=== PATIENT | male | born 1970 | race Caucasian/White ===

== ENCOUNTER → 2017-12-05 10:56 | Outpatient (CLI) | payer OTHER, SELFPAY ==
--- NOTE | 2017-12-05 10:59 | MR_ITS ---
MR lumbar spine wo con, MR 3-d myelogram/MRCP HISTORY: ITS.REASON: ACUTE RIGHT SIDED BACK PAIN WITH SCIATICA ORDERING PHYSICIAN: Monroe Huizar MD PATIENT AGE: 46 years Comparison: 11-26-17 TECHNIQUE: Standard multiplanar multiecho sequences are performed without contrast. 3-D MIP and myelographic images are also rendered and reviewed FINDINGS: There is normal alignment. The spinal cord ends at the T12-L1 level. L2-L3: Mild concentric bulging disc. L3-L4: Bulging disc with a small broad-based left paracentral and foraminal disc protrusion. This was partially calcified on the CT scan. This is abutting the left L4 nerve root and causing left lateral recess and foraminal narrowing. Type II endplate changes are present as level. There is facet ligamentum flavum hypertrophy with bilateral lateral recess and foraminal narrowing left greater than right L4-L5: Mild facet and ligamentum hypertrophy. L5-S1: Mild concentric bulging disc with mild facet and ligamentum flavum hypertrophy with mild bilateral foraminal narrowing. IMPRESSION: 1. Bulging disc at L3-L4 with a small broad-based left paracentral and foraminal disc protrusion. This was partially calcified on the CT scan. This is abutting the left L4 nerve root and causing left lateral recess and foraminal narrowing. Type II endplate changes are present as level. There is facet ligamentum flavum hypertrophy with bilateral lateral recess and foraminal narrowing left greater than right 2. Mild bulging disc at L2-L3 with mild facet and ligamentum flavum hypertrophy at L4-L5 and mild bulging disc with facet and ligamentum hypertrophy with mild bilateral foraminal narrowing at L5-S1
== END ==
PROVIDERS: Family Provider Internal Medicine Adolescent Medicine; PCP Internal Medicine Adolescent Medicine; Visit Provider Internal Medicine Adolescent Medicine
DX: M54.41 Lumbago with sciatica, right side (principal)
CPT/HCPCS: 72148; 76376

== ENCOUNTER → 2019-05-16 15:50 | Outpatient (CLI) | payer OTHER, SELFPAY ==
[2019-05-16 17:27] LABS: Erythrocyte Sedimentation Rate 10 mm/hr (0-15)
[2019-05-20 06:36] LABS: Rapid Plasma Reagin Ab Titer Non Reactive (NonRea<1:1)
[2019-05-20 13:15] LABS: Anti-Centromere B Antibodies <0.2 AI (0.0-0.9); Anti-Jo-1 <0.2 AI (0.0-0.9); Anti-Smith Antibody <0.2 AI (0.0-0.9); Antichromatin Antibodies <0.2 AI (0.0-0.9); Antiscleroderma-70 Antibodies <0.2 AI (0.0-0.9); RNP Antibodies <0.2 AI (0.0-0.9); Sjogren's Anti-SS-A <0.2 AI (0.0-0.9); Sjogren's Anti-SS-B <0.2 AI (0.0-0.9)
[2019-05-21 06:14] LABS: Anti-DNA (DS) Ab Qn <1 IU/mL (0-9)
== END ==
PROVIDERS: Visit Provider Internal Medicine Adolescent Medicine
DX: H20.9 Unspecified iridocyclitis (principal)
CPT/HCPCS: 36415; 85651; 86225; 86235; 86592

== ENCOUNTER → 2019-05-20 11:11 | Outpatient (CLI) | payer OTHER, SELFPAY ==
[2019-05-20 13:54] LABS: C-Reactive Protein 0.3 mg/dL (0.0-0.9)
[2019-05-21 11:28] LABS: Cytomegalovirus (CMV) Ab, IgG >10.00 U/mL (0.00-0.59); Cytomegalovirus (CMV) Ab, IgM <30.0 AU/mL (0.0-29.9); HSV 2 IgG, Type Spec <0.91 index (0.00-0.90)
[2019-05-22 07:34] LABS: Treponema pallidum Ab (FTA-ABS Non Reactive (Non Reactive); Varicella Zoster IgG 1663 index (Immune >165); Varicella-Zoster Ab, IgM <0.91 index (0.00-0.90)
[2019-05-24 10:27] LABS: QuantiFERON-TB Gold Plus Negative (Negative)
[2019-05-24 12:23] LABS: HLA-B27 Negative (.)
== END ==
PROVIDERS: Visit Provider Ophthalmology
DX: H20.022 Recurrent acute iridocyclitis, left eye (principal)
CPT/HCPCS: 36415; 86140; 86480; 86644; 86645; 86695; 86696; 86780; 86787; 86790; 86812

== ENCOUNTER → 2020-05-08 09:44 | Outpatient (CLI) | payer OTHER, SELFPAY ==
[2020-05-08 10:31] LABS: Basophils # 0.1 K/mm3 (0-0.2); Basophils % 0.6 % (0.1-2.0); Eosinophils # 0.1 K/mm3 (0.0-0.4); Eosinophils % 1.3 % (0.1-12.0); Hematocrit 49.3 % (42.0-52.0); Hemoglobin 16.6 g/dL (14.1-18.0); Lymphocytes # 2.2 K/mm3 (0.7-4.5); Lymphocytes % 30.4 % (10-50); Mean Corpuscular HGB Conc 33.6 g/dL (31.8-35.4); Mean Corpuscular Hemoglobin 30.4 pg (27.0-31.2); Mean Corpuscular Volume 90.5 fl (80-94); Mean Platelet Volume 7.4 fl (7.4-10.4); Monocytes # 0.3 K/mm3 (0.1-1.0); Monocytes % 3.7 % (1.7-9.3); Neutrophils # 4.6 K/mm3 (1.8-7.8); Neutrophils % 63.9 % (37.0-80.0); Platelet Count 231 K/mm3 (142-424); Red Blood Count 5.45 M/mm3 (4.60-6.20); Red Cell Distribution Width 13.6 % (11.5-17.5); White Blood Count 7.1 K/mm3 (4.8-10.8)
[2020-05-08 10:49] LABS: Alanine Aminotransferase 29 U/L (12-78); Albumin Level 4.5 g/dl (3.5-5.0); Albumin/Globulin Ratio 1.7 (1.1-1.8); Alkaline Phosphatase 67 U/L (38-126); Anion Gap 13.3 mEq/L (5-15); Aspartate Amino Transferase 29 U/L (17-59); Bilirubin,Total 0.3 mg/dl (0.2-1.3); Blood Urea Nitrogen 18 mg/dl (9-20); Calcium 9.3 mg/dl (8.4-10.2); Carbon Dioxide 24 mmol/L (22.0-30.0); Chloride 108 mmol/L (98-107); Cholesterol 239 mg/dl (140-200); Estimated Glomerular Filt Rate 104 ml/min (>60); GFR (African American) 125 ML/MIN (>60); Globulin 2.6 g/dL (1.3-3.2); Glucose 123 mg/dl (74-100); HDL Cholesterol 48 mg/dl (40-60); Potassium 4.3 mmoL/L (3.5-5.1); Sodium 141 mmol/L (136-145); Total Protein,Serum 7.1 g/dl (6.3-8.2); Triglycerides 114 mg/dl (30-150); VLDL Cholesterol 23 mg/dL (0-40)
[2020-05-08 10:59] LABS: Direct LDL Cholesterol 174.22 mg/dL (100-129)
[2020-05-08 12:38] LABS: Hemoglobin A1C 5.7 % (4.0-6.0)
[2020-05-10 11:35] LABS: Rapid Plasma Reagin Ab Titer Non Reactive (NonRea<1:1)
[2020-05-11 09:19] LABS: HIV Screen 4th Generation wRfx Non Reactive (Non Reactive)
== END ==
PROVIDERS: Visit Provider Internal Medicine Adolescent Medicine
DX: I10 Essential (primary) hypertension (principal); Z72.51 High risk heterosexual behavior
CPT/HCPCS: 36415; 80053; 80061; 83036; 85025; 86592; 86703; G0432

== ENCOUNTER → 2020-07-16 10:27 | Outpatient (CLI) | payer OTHER, SELFPAY ==
--- NOTE | 2020-07-16 | XR_ITS ---
PROCEDURE: XR ANKLE LT MIN 3V CLINICAL INDICATION: ACUTE LT ANKLE PAIN COMPARISON: No exams were available for comparison FINDINGS: There is minimal osteoarthritic change the junction of the medial malleolus with the talus and at the talonavicular and navicular cuneiform joint. No fracture or dislocation. No lytic or blastic change. Prominent calcaneal spurs noted. IMPRESSION: Minimal osteoarthritic change Dictated by: Jamey Lang MD 07/16/2020 15:42 Jamey Lang MD in [place] 07/16/2020 15:42
--- NOTE | 2020-07-16 | XR_ITS ---
PROCEDURE: XR FOOT LT MIN 3V CLINICAL INDICATION: LT FOOT PAIN Pain in the heel COMPARISON: No exams were available for comparison FINDINGS: No fracture or dislocation. No lytic or blastic change. There is normal mineralization. Mild osteoarthritic changes are present at the 1st MTP joint with mild bony hypertrophy at the distal aspect of the 1st metatarsal. There is a mildly prominent calcaneal spur without erosive change. There is a type 1 os navicularis. Other findings:None. IMPRESSION: 1. 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 Mildly prominent calcaneal spur Dictated by: Jamey Lang MD 07/16/2020 15:41 Jamey Lang MD in [place] 07/16/2020 15:41
== END ==
PROVIDERS: PCP Internal Medicine Adolescent Medicine; Visit Provider Nurse Practitioner Family
DX: M79.672 Pain in left foot (principal); M25.572 Pain in left ankle and joints of left foot
CPT/HCPCS: 73610; 73630

== ENCOUNTER → 2023-04-04 09:01 | Outpatient (CLI) | payer OTHER, SELFPAY ==
--- NOTE | 2023-04-04 09:08 | XR_ITS ---
FINAL REPORT CLINICAL HISTORY: Left foot pain after a fall 1 week ago FINDINGS: LEFT FOOT: Three views of the left foot were obtained. There is no acute fracture or dislocation. Calcaneal spurs are noted. Hallux valgus deformity is present. There are mild degenerative changes. There is no soft tissue abnormality. IMPRESSION: No acute bony abnormality. Reviewed, Interpreted and Dictated by Gerardo Nolen III, MD Transcribed by Edna Vila Authenticated and [facility]
--- NOTE | 2023-04-04 09:08 | XR_ITS ---
FINAL REPORT CLINICAL HISTORY: Left lower leg pain after fall 1 week ago FINDINGS: There is no acute fracture or dislocation. Mild degenerative changes are seen in the knee and ankle. There is no soft tissue abnormality. IMPRESSION: No acute fracture Reviewed, Interpreted and Dictated by Gerardo Nolen III, MD Transcribed by Edna Vila Authenticated and [facility]
--- NOTE | 2023-04-04 09:08 | XR_ITS ---
FINAL REPORT CLINICAL HISTORY: Left knee pain FINDINGS: Three views of the left knee reveal no evidence of fracture or dislocation. The bony alignment is normal. There are mild degenerative changes. There is no evidence of joint effusion. No localized soft tissue abnormality is seen. IMPRESSION: No acute abnormality identified. Reviewed, Interpreted and Dictated by Gerardo Nolen III, MD Transcribed by Edna Vila Authenticated and [facility]
--- NOTE | 2023-04-04 09:08 | XR_ITS ---
FINAL REPORT CLINICAL HISTORY: left ankle pain after a fall 1 week ago FINDINGS: LEFT ANKLE: Three views of the left ankle were obtained. There is no acute fracture or dislocation. Calcaneal spurs are noted. There are mild degenerative changes. There is no soft tissue abnormality. IMPRESSION: No acute bony abnormality. Reviewed, Interpreted and Dictated by Gerardo Nolen III, MD Transcribed by Edna Vila Authenticated and [facility]
== END ==
PROVIDERS: PCP Nurse Practitioner Family; Visit Provider Nurse Practitioner Family
DX: M79.672 Pain in left foot (principal); M25.562 Pain in left knee; M79.662 Pain in left lower leg; M25.572 Pain in left ankle and joints of left foot
CPT/HCPCS: 73562; 73590; 73610; 73630

== ENCOUNTER 2024-01-09 10:06 | Outpatient (CLI) | payer OTHER, SELFPAY ==
[2024-01-09 10:34] LABS: Basophils # 0.1 K/mm3 (0-0.2); Basophils % 1.1 % (0.1-2.0); Eosinophils # 0.1 K/mm3 (0.0-0.4); Eosinophils % 1.6 % (0.1-12.0); Hematocrit 47.3 % (42.0-52.0); Hemoglobin 15.7 g/dL (14.1-18.0); Lymphocytes % 30.9 % (10-50); Mean Corpuscular HGB Conc 33.1 g/dL (31.8-35.4); Mean Corpuscular Hemoglobin 30.7 pg (27.0-31.2); Mean Corpuscular Volume 92.6 fl (80-94); Mean Platelet Volume 7.5 fl (7.4-10.4); Monocytes # 0.3 K/mm3 (0.1-1.0); Monocytes % 4.3 % (1.7-9.3); Neutrophils # 4.1 K/mm3 (1.8-7.8); Neutrophils % 62.1 % (37.0-80.0); Platelet Count 214 K/mm3 (142-424); Red Blood Count 5.11 M/mm3 (4.60-6.20); Red Cell Distribution Width 14.3 % (11.5-17.5); White Blood Count 6.6 K/mm3 (4.8-10.8)
[2024-01-09 11:42] LABS: Alanine Aminotransferase 27 U/L (12-78); Albumin Level 4.4 g/dl (3.5-5.0); Anion Gap 12.2 mEq/L (5-15); Aspartate Amino Transferase 29 U/L (17-59); Bilirubin,Total 0.5 mg/dl (0.2-1.3); Blood Urea Nitrogen 15 mg/dl (9-20); Calcium 9.6 mg/dl (8.4-10.2); Carbon Dioxide 27 mmol/L (22.0-30.0); Chloride 107 mmol/L (98-107); Estimated Glomerular Filt Rate 102 ml/min (>60); GFR (African American) 123 ML/MIN (>60); Glucose 116 mg/dl (74-100); Potassium 4.2 mmoL/L (3.5-5.1); Sodium 142 mmol/L (136-145); Total Protein,Serum 7.2 g/dl (6.3-8.2)
[2024-01-09 11:43] LABS: Albumin/Globulin Ratio 1.6 (1.1-1.8); Alkaline Phosphatase 62 U/L (38-126); Chol/HDL Ratio 5.8 (1-3.5); Cholesterol 238 mg/dl (140-200); Globulin 2.8 g/dL (1.3-3.2); HDL Cholesterol 41 mg/dl (40-60); Triglycerides 124 mg/dl (30-150); VLDL Cholesterol 25 mg/dL (0-40)
[2024-01-09 11:45] LABS: Hemoglobin A1C 5.9 % (4.0-6.0)
[2024-01-09 11:54] LABS: Direct LDL Cholesterol 157.86 mg/dL (100-129)
[2024-01-09 12:14] LABS: Prostate Specific Ag Screen 0.6 ng/ml (0.0-4.0)
[2024-01-10 13:00] LABS: Testosterone,Total 422 ng/dL (264-916)
== END 2024-01-09 23:59 | disposition home or self-care (01) ==
LOC: LAB 10:08
PROVIDERS: PCP Nurse Practitioner Family; Visit Provider Nurse Practitioner Family
DX: I10 Essential (primary) hypertension (principal); Z00.00 Encounter for general adult medical examination without abnormal findings; R79.89 Other specified abnormal findings of blood chemistry; Z72.0 Tobacco use
CPT/HCPCS: 36415; 80053; 80061; 83036; 84403; 85025; G0103